=== PATIENT | female | born 1980 | race African-American/Black ===

== ENCOUNTER 2019-06-08 22:19 | Emergency (ER) | payer MEDICAID ==
[~2019-06-08] VITALS: Ht 165.1 cm; Wt 68.5 kg
[2019-06-08 22:42] VITALS: Ht 165.1 cm; Wt 68.5 kg
[2019-06-09 11:35] VITALS: BP 105/74
== END 2019-06-09 12:15 | disposition home or self-care (01) ==
LOC: ED 22:19
DX: Z13.89 Encounter for screening for other disorder (principal); Z85.118 Personal history of other malignant neoplasm of bronchus and lung; I50.9 Heart failure, unspecified

== ENCOUNTER 2019-07-01 04:12 | Emergency (ER) | payer MEDICAID ==
[~2019-07-01] VITALS: Ht 167.6 cm; Wt 61.2 kg
[2019-07-01 04:22] VITALS: Ht 167.6 cm; Wt 61.2 kg
[2019-07-01 05:17] LABS: BASOPHIL % 0.4 % (0-2); PLATELET COUNT 257 x10^3mcL (130-400)
[2019-07-01 05:23] LABS: RED CELL DISTRIBUTION WIDTH 25.7 % (11.5-14.5)
[2019-07-01 05:29] LABS: CALCIUM 8.8 mg/dL (8.5-10.1); CARBON DIOXIDE 26.2 mmol/L (21-32); CHLORIDE SERUM 107 mmol/L (98-107); CREATININE SERUM 0.8 mg/dL (0.6-1.0); GFR1 > 60 mL/min; GLUCOSE SERUM 72 mg/dL (74-106); POTASSIUM SERUM 3.7 mmol/L (3.5-5.1); SODIUM SERUM 143 mmol/L (136-145)
[2019-07-01 05:35] LABS: ALBUMIN 3.1 g/dL (3.4-5.0); ALKALINE PHOSPHATASE 86 U/L (46-116); ALT/SGPT 26 U/L (14-59); AST/SGOT 24 U/L (15-37); BILIRUBIN TOTAL 0.1 mg/dL (0.20-1.00); TOTAL PROTEIN, SERUM 7.1 g/dL (6.4-8.2)
[2019-07-01 11:28] VITALS: BP 115/81
== END 2019-07-01 11:28 | disposition home or self-care (01) ==
LOC: ED 04:12
PROVIDERS: Emergency Medicine
DX: R07.2 Precordial pain (principal); R56.9 Unspecified convulsions; I50.9 Heart failure, unspecified
CPT/HCPCS: 83880; 85378; J1165; Q0092

== ENCOUNTER 2020-12-02 01:01 | Emergency (ER) | payer MEDICAID ==
[~2020-12-02] VITALS: Ht 167.6 cm; Wt 58.1 kg
[2020-12-02 01:37] VITALS: Ht 167.6 cm; Wt 58.1 kg
[2020-12-02 04:41] VITALS: BP 123/66
== END 2020-12-02 04:41 | disposition home or self-care (01) ==
LOC: EDBD 01:01 → ED 01:01
DX: G40.909 Epilepsy, unspecified, not intractable, without status epilepticus (principal); F19.10 Other psychoactive substance abuse, uncomplicated; I50.9 Heart failure, unspecified; Z85.841 Personal history of malignant neoplasm of brain; Z88.0 Allergy status to penicillin; Z88.2 Allergy status to sulfonamides
CPT/HCPCS: J2060